=== PATIENT | female | born 1930 | race Two or more races ===

== ENCOUNTER 2017-12-05 09:04 | Emergency (ER) | payer SELFPAY ==
[2017-12-05] MEDS ORDERED: DiphenhydrAMINE 50 mg/ml Inj IVP STA (09:26)
[2017-12-05] MEDS ORDERED: Sodium Chloride 0.9% 500 ML IV STA (09:26)
[2017-12-05] MEDS ORDERED: DiphenhydrAMINE 50 mg/ml Inj ONE (09:31)
[2017-12-05 09:56] LABS: BASO # 0.1 K/uL (0.0-0.2); BASO % 1.3 % (0.0-2.0); EOS # 0.4 K/uL (0.0-0.7); EOS % 5.4 % (0.0-4.0); HEMOGLOBIN 14.3 g/dL (12.0-16.0); LYMPH # 1.7 K/uL (1.0-4.3); MEAN CELL VOLUME 95.9 fl (81.0-99.0); MEAN CORPUSCULAR HEMOGLOBIN 32.3 pg (27.0-31.0); MEAN CORPUSCULAR HGB CONC 33.6 g/dL (33.0-37.0); MEAN PLATELET VOLUME 7.9 fl (7.2-11.7); MONO # 0.5 K/uL (0.0-0.8); MONO % 6.8 % (0.0-10.0); NEUT # 4.3 K/uL (1.8-7.0); NEUT % 61.5 % (50.0-75.0); RBC 4.44 Mil/uL (3.80-5.20); RED CELL DISTRIBUTION WIDTH 13.4 % (11.5-14.5); WHITE BLOOD COUNT 6.9 K/uL (4.8-10.8)
[2017-12-05] MEDS ORDERED: Permethrin 5% CREAM TOP ONE (10:00)
[2017-12-05 10:09] LABS: ALB/GLOB RATIO 1.2 (1.0-2.1); ALBUMIN 4.5 g/dL (3.5-5.0); ALT/SGPT 23 U/L (9-52); AST/SGOT 20 U/L (14-36); BLOOD UREA NITROGEN 21 mg/dl (7-17); CALCIUM 9.5 mg/dL (8.4-10.2); GFR AFRICAN-AMERICAN > 60; GFR NON-AFRICAN AMERICAN > 60
--- NOTE | 2017-12-05 11:52 | ED PDOC ---
HPI: Skin/Bite Injury Time Seen by Provider: 12/05/17 09:20 Chief Complaint (Nursing): Allergic Reaction Chief Complaint (Provider): Allergic Reaction History Per: Patient History/Exam Limitations: no limitations Onset/Duration Of Symptoms: Days (x5) Current Symptoms Are (Timing): Still Present Additional Complaint(s): 87 year old female presents to the emergency department with a complaint of skin rash of the shoulder, neck and extremities associated with itchiness ongoing for 5 days status post taking an unknown cough medication. She denied any fever, chills, cough, vomiting or diarrhea. Patient also admitted to living at the homeless custodial for several weeks. PMD: none provided Past Medical History Reviewed: Historical Data, Nursing Documentation, Vital Signs Vital Signs: Last Vital Signs Temp 98 F 12/05/17 13:11 Pulse 75 12/05/17 13:11 Resp 16 12/05/17 13:11 BP 142/80 12/05/17 13:11 Pulse Ox 96 12/05/17 13:11 - Medical History PMH: Chronic Pain (back) Other PMH: constipation - Surgical History Surgical History: No Surg Hx - Family History Family History: States: Unknown Family Hx - Social History Current smoker - smoking cessation education provided: No Alcohol: None Drugs: Denies - Allergies Allergies/Adverse Reactions: Allergies Allergy/AdvReac Type Severity Reaction Status Date / Time No Known Allergies Allergy Verified 12/05/17 09:18 Review of Systems ROS Statement: Except As Marked, All Systems Reviewed And Found Negative Constitutional: Negative for: Fever, Chills Respiratory: Negative for: Cough Gastrointestinal: Negative for: Vomiting, Diarrhea Skin: Positive for: Rash (shoulder/neck/upper and lower extremities) Physical Exam - Reviewed Nursing Documentation Reviewed: Yes Vital Signs Reviewed: Yes - Physical Exam Appears: Positive for: No Acute Distress Head Exam: Positive for: ATRAUMATIC, NORMAL INSPECTION, NORMOCEPHALIC Skin: Positive for: Normal Color. Negative for: Rash (or urticaria to upper/ lower extremities) Eye Exam: Positive for: Normal appearance ENT: Positive for: Normal ENT Inspection Neck: Positive for: Normal Cardiovascular/Chest: Positive for: Regular Rate, Rhythm Respiratory: Positive for: Normal Breath Sounds. Negative for: Decreased Breath Sounds, Respiratory Distress Gastrointestinal/Abdominal: Positive for: Normal Exam Back: Positive for: Other (excoriation to upper back bilaterally). Negative for : Vertebral Tenderness Extremity: Positive for: Other (excoriation to bilateral arms). Negative for: Tenderness (upper/lower) Neurologic/Psych: Positive for: Alert, Oriented - Laboratory Results Result Diagrams: 12/05/17 09:40 12/05/17 09:40 - ECG O2 Sat by Pulse Oximetry: 97 (RA) Pulse Ox Interpretation: Normal Medical Decision Making Medical Decision Making: Initial Impression: Skin rash Initial Plan: * CMP * CBC * Benadryl 15mg IVP * NS 500ml IV per 500mls/hr * Permethrin 5% cream * Isolation Time: 925 --Clinically, patient's symptoms does not appear allergic in nature due to history of living in homeless custodial. --Plan to treat symptoms empirically for possible scabies. decon/permethrin tmt complete labs reviewed unremarkable patient feels better, ambulating without difficulty cab to custodial provided for safe discharge Scribe Attestation: Documented by Rachel Swift, acting as a scribe for Shawn Olivares III, DO. Provider Scribe Attestation: All medical record entries made by the Scribe were at my direction and personally dictated by me. I have reviewed the chart and agree that the record accurately reflects my personal performance of the history, physical exam, medical decision making, and the department course for this patient. I have also personally directed, reviewed, and agree with the discharge instructions and disposition. Disposition - Clinical Impression Clinical Impression: Rash - Patient ED Disposition Is Patient to be Admitted: No Counseled Patient/Family Regarding: Studies Performed, Diagnosis, Need For Followup - Disposition Referrals: [facility] [Outside] Provider TBD, [Primary Care Provider] - Disposition: Routine/Home Disposition Time: 14:00 Condition: STABLE Additional Instructions: Return to ER for any worse or new symptoms. Treated empirically for scabies with permethrin 5% Instructions: Skin Rash (DC) Forms: [employer] Event Guide (Swedish)
[2017-12-05 13:11] VITALS: BP 142/80; PULSE 75; RESP 16; TEMP 98
[2017-12-07 16:03] VITALS: O2SAT 97
== END 2017-12-05 16:05 | disposition home or self-care (01) ==
LOC: SUPCPDRO 09:04 → H.ER 09:04
DX: R21 Rash and other nonspecific skin eruption (principal); G89.29 Other chronic pain; T78.40XA Allergy, unspecified, initial encounter
CPT/HCPCS: 80053; 85025; 96374; 99283; J1200; J7040